=== PATIENT | female | born 1955 | race Caucasian/White ===

== ENCOUNTER 2018-02-14 07:48 | Day surgery (SDC) | payer OTHER ==
[~2018-02-14] VITALS: Ht 157.5 cm; Wt 127.7 kg
[~2018-02-14 07:48] MED LIST: ACET-66 PO; ALPR0.5T PO; ALPR0.5T8 PO; ASPI-555 PO; ENAL10TA PO; FLUT16H NASAL; HYDR12.530 PO; METO5TAB2 PO; MONT10TA24 PO; PANT40TA25 PO; SODIUM CHLORIDE 0.9% 1000ML 1,000 ML IV ONE
[2018-02-14 07:55] VITALS: BP 127/58
[2018-02-14] MEDS ORDERED: IBUP-2353 PO (08:18)
[2018-02-14] MEDS ORDERED: ATOR10 PO (08:19)
[2018-02-14] MEDS ORDERED: PROPOFOL 10 MG/ML 20ML VIAL IV ONE ×2 (09:23→09:41)
[2018-02-14 09:58] VITALS: BP 110/59
[2018-02-14 10:03] VITALS: BP 111/58
[2018-02-14 10:08] VITALS: BP 114/75
== END 2018-02-14 10:30 | disposition home or self-care (01) ==
LOC: DAH 07:48 → ENDO 07:48
PROVIDERS: ATTEND Internal Medicine
DX: K63.5 Polyp of colon (principal); K64.8 Other hemorrhoids; K57.30 Diverticulosis of large intestine without perforation or abscess without bleeding; K31.7 Polyp of stomach and duodenum; K31.89 Other diseases of stomach and duodenum; K22.8 Other specified diseases of esophagus; K44.9 Diaphragmatic hernia without obstruction or gangrene; I10 Essential (primary) hypertension; E78.5 Hyperlipidemia, unspecified; J44.9 Chronic obstructive pulmonary disease, unspecified; F41.9 Anxiety disorder, unspecified; F32.9 Major depressive disorder, single episode, unspecified; M19.90 Unspecified osteoarthritis, unspecified site; Z68.43 Body mass index [BMI] 50.0-59.9, adult; Z90.49 Acquired absence of other specified parts of digestive tract; Z98.890 Other specified postprocedural states; Z98.49 Cataract extraction status, unspecified eye; Z79.899 Other long term (current) drug therapy; Z88.8 Allergy status to other drugs, medicaments and biological substances
CPT/HCPCS: 43239; 43251; 45380; A4606; J2704 ×2; J7030

== ENCOUNTER 2021-10-20 05:30 | Day surgery (SDC) | payer OTHER ==
[2021-10-19 12:14] LABS: BASOPHILS % (AUTO) 0.6 % (0.0-5.0); EOSINOPHILS % (AUTO) 2.6 % (0.0-8.0); HEMATOCRIT 37.8 % (36-48); LYMPHOCYTES % (AUTO) 21.8 % (21.0-51.0); MEAN CORPUSCULAR HEMOGLOBIN 26.3 pg (27.0-33.0); MEAN CORPUSCULAR HGB CONC 30.7 g/dL (32.0-36.0); MEAN CORPUSCULAR VOLUME 85.7 fL (79-99); MONOCYTES % (AUTO) 5.7 % (3.0-13.0); PLATELET COUNT (AUTO) 297 K/uL (130-400); RED BLOOD CELL COUNT(AUTO) 4.41 MIL/uL (4.00-5.50); RED CELL DISTRIBUTION WIDTH 17.2 % (11.0-15.5); WHITE BLOOD COUNT (AUTO) 9.9 K/uL (4.8-10.8)
[2021-10-19 12:25] LABS: APPEARANCE,URINE Clear (CLEAR); BILIRUBIN,URINE Negative (NEGATIVE); COLOR,URINE Yellow (YELLOW); GLUCOSE, URINE (UA) Negative (NEGATIVE); KETONES,URINE Negative (NEGATIVE); LEUKOCYTE ESTERASE ,URINE Trace (NEGATIVE); NITRATE,URINE Negative (NEGATIVE); OCCULT BLOOD,URINE Negative (NEGATIVE); PH,URINE 5.5 (5.0-8.0); PROTEIN,URINE Negative (NEGATIVE); UROBILINOGEN,URINE 0.2 mg/dL (0.2-1.0)
[2021-10-19 12:36] LABS: BACTERIA,URINE Rare /HPF (None Seen); RBC,URINE 0-1 /HPF (0-1); SQUAMOUS EPITHELIAL CELL,UR Rare /HPF (0-2); WBC,URINE 0-1 /HPF (0-1)
[2021-10-19 13:08] VITALS: BP 139/57
[2021-10-20] VITALS (15 sets, daily range): BP systolic 126–159; BP diastolic 53–75
[~2021-10-20] VITALS: Ht 157.5 cm; Wt 124.1 kg
[~2021-10-20 05:30] MED LIST changes: -ALPR0.5T8 PO; -ASPI-555 PO; +ASPI-556 PO; +ATOR20TA65 PO; +BUDE10.2 IH; -ENAL10TA PO; +ENAL10TA18 PO; -FLUT16H NASAL; +IBUP-1673 PO; +LACT1CAP81 PO; -MONT10TA24 PO; -PANT40TA25 PO; +PANT40TA54 PO; -SODIUM CHLORIDE 0.9% 1000ML 1,000 ML IV ONE
[2021-10-20] MEDS ORDERED: LACTATED RINGERS 1000ML 1,000 ML IV SCH (06:00)
[2021-10-20] MEDS ORDERED: 0.9%NACL 1000ML 1,000 ML IV ONE (06:28)
[2021-10-20] MEDS ORDERED: MIDAZOLAM HCL 1 MG/ML 2ML VIAL ONE (08:20)
[2021-10-20] MEDS ORDERED: ONDANSETRON 4MG INJ ONE (09:39)
[2021-10-20] MEDS ORDERED: LIDOCAINE PF 100MG/5ML (2%) SYRINGE 5ML ONE (09:39)
[2021-10-20] MEDS ORDERED: DEXAMETHASONE SOD PHOSPHATE 10MG/ML 1ML VIAL ONE (09:39)
[2021-10-20] MEDS ORDERED: SUCCINYLCHOLINE CHLORIDE 20 MG/ML 10 ML VIAL ONE (09:39)
[2021-10-20] MEDS ORDERED: ROCURONIUM 10MG/1ML SYR 10 MG/ML ML ONE (09:40)
[2021-10-20] MEDS ORDERED: GLYCOPYRROLATE 1 MG/5 ML SYRINGE ONE (09:40)
[2021-10-20] MEDS ORDERED: PROPOFOL 10 MG/ML 20ML VIAL IV ONE ×2 (09:40→09:59)
[2021-10-20] MEDS ORDERED: NEOSTIGMINE 5MG/5ML SYR IV ONE (09:40)
[2021-10-20] MEDS ORDERED: FENTANYL CITRATE PF 50 MCG/1 ML 2ML VIAL ONE (09:41)
[2021-10-20] MEDS ORDERED: SUGAMMADEX SODIUM 200 MG/2 ML VIAL IV ONE (10:25)
[2021-10-20] MEDS ORDERED: KETOROLAC 30MG VIAL (30MG/ML) ONE (11:11)
== END 2021-10-20 11:54 | disposition home or self-care (01) ==
LOC: DAH 05:30
PROVIDERS: ATTEND Obstetrics & Gynecology
DX: N95.0 Postmenopausal bleeding (principal); N95.2 Postmenopausal atrophic vaginitis; N88.2 Stricture and stenosis of cervix uteri; N84.0 Polyp of corpus uteri; E11.9 Type 2 diabetes mellitus without complications; J44.9 Chronic obstructive pulmonary disease, unspecified; F41.9 Anxiety disorder, unspecified; M06.9 Rheumatoid arthritis, unspecified; E78.5 Hyperlipidemia, unspecified; M19.90 Unspecified osteoarthritis, unspecified site; M81.0 Age-related osteoporosis without current pathological fracture; E66.01 Morbid (severe) obesity due to excess calories; Z90.49 Acquired absence of other specified parts of digestive tract; Z98.890 Other specified postprocedural states; Z98.891 History of uterine scar from previous surgery; Z68.43 Body mass index [BMI] 50.0-59.9, adult; Z79.82 Long term (current) use of aspirin; Z79.899 Other long term (current) drug therapy
CPT/HCPCS: 36415 ×2; 58120; 81001; 82948 ×2; 85025; 85730; 86850; 86900; 86901; 87635; A4215; A4221; A4222; A4223; A4315; A4351; A4663; C9803; J0330; J1100; J1885; J2001; J2250; J2405; J2704 ×2; J2710; J3010; J3490; J7030 ×2

== ENCOUNTER → 2025-01-11 | Outpatient (CLI) | payer OTHER ==
[~2025-01-11] MED LIST changes: +CETI-89 PO; +DICL1PAT7 TD; +ENAL-89 PO; -ENAL10TA18 PO; +FOLI0.8C PO; +GABA-529 PO; +LIDOP TD; +MECO10005 PO; +METF-1150 PO
--- NOTE | 2025-01-28 01:42 | HMCIMG ---
EXAM: MR Lumbar Spine Without Intravenous Contrast. CLINICAL HISTORY: Radiculopathy. TECHNIQUE: Magnetic resonance images of the lumbar spine without intravenous contrast in multiple planes. CONTRAST: None. COMPARISON: CT lumbar spine dated 07/26/2022. FINDINGS: For the purposes of this examination, spinal levels were labeled assuming five [id number], lumbar-type vertebrae, with the inferior labeled L5. No acute fracture. Normal lordotic curvature. Normal vertebral body heights. Mild spondylosis is evident by marginal osteophytes and facet arthropathy at multiple levels. Mild degenerative reduction in the disc height and disc desiccation at multiple levels. 1.6 cm vertebral body hemangioma within the T12. Normal marrow signal of the vertebrae. Conus medullaris terminates at the T12-L1 level. No abnormal epidural masses. Mild diffuse fatty infiltration in the posterior paraspinal muscles. Individual spinal levels are described as follows: T12-L1: No disc bulge or herniation. No neural foraminal, lateral recess or spinal canal stenosis. L1-L2: No disc bulge or herniation. No neural foraminal, lateral recess or spinal canal stenosis. L2-L3: 2 mm annular disc bulge, indenting the anterior thecal sac. Mild bilateral neural foraminal narrowing. No spinal canal stenosis. L3-L4: 2 mm diffuse posterior disc bulge, 5 mm to 6 mm bilateral ligamentum flavum thickening, and bilateral facet hypertrophy, indenting the anterior and posterior thecal sac with mild to moderate bilateral neuroforaminal and lateral recess narrowing, and mild spinal canal stenosis. L4-L5: 3 mm diffuse posterior disc bulge, 4 mm to 5 mm bilateral ligamentum flavum thickening, and bilateral facet hypertrophy, indenting the anterior and posterior thecal sac with mild to moderate bilateral neuroforaminal narrowing and mild spinal canal stenosis. L5-S1: 1 mm disc bulge, indenting the anterior epidural fat. Mild bilateral facet hypertrophy and up to 3 mm ligamentum flavum thickening. No neural foraminal, lateral recess or spinal canal stenosis. IMPRESSION: No acute fracture. Mild spondylosis and degenerative disc disease at multiple levels, more pronounced at L3-L4 and L4-L5. No neurological compromise. No gross changes within the limits of cross-modality comparison. /[place]
== END | disposition home or self-care (01) ==
LOC: RAH 10:22
PROVIDERS: ATTEND Anesthesiology
DX: M51.16 Intervertebral disc disorders with radiculopathy, lumbar region (principal); M47.26 Other spondylosis with radiculopathy, lumbar region; M48.061 Spinal stenosis, lumbar region without neurogenic claudication; M53.3 Sacrococcygeal disorders, not elsewhere classified; M47.818 Spondylosis without myelopathy or radiculopathy, sacral and sacrococcygeal region; M25.78 Osteophyte, vertebrae; M62.89 Other specified disorders of muscle; D18.03 Hemangioma of intra-abdominal structures
CPT/HCPCS: 72148

== ENCOUNTER → 2025-04-22 | Outpatient (CLI) | payer OTHER ==
--- NOTE | 2025-04-22 12:45 | HMCIMG ---
DOUBLE CONTRAST UPPER GI SERIES: Findings: The study was performed using provocative maneuvers After swallowing effervescent crystal and thick barium, there is no definite intrinsic or extrinsic lesion seen in the esophagus. There is grade 1 esophageal reflux reflux. There is suggestion of a small hiatal hernia seen in this one images The stomach is normal in size, shape, and configuration. The rugal folds appear to be normal. The duodenal bulb, duodenal sweep, and upper jejunum appear to be normal. A small diverticulum seen in the second portion of the duodenum. There are surgical clips in the right upper quadrant from prior cholecystectomy. Fluoroscopy time: 1.1 minutes IMPRESSION: Grade 1 esophageal reflux with small hiatal hernia Otherwise NORMAL DOUBLE CONTRAST UPPER GI SERIES.
== END | disposition home or self-care (01) ==
LOC: RAH 07:46
PROVIDERS: ATTEND Internal Medicine
DX: K21.9 Gastro-esophageal reflux disease without esophagitis (principal); K44.9 Diaphragmatic hernia without obstruction or gangrene; K57.10 Diverticulosis of small intestine without perforation or abscess without bleeding; R10.10 Upper abdominal pain, unspecified; Z90.49 Acquired absence of other specified parts of digestive tract
CPT/HCPCS: 74240; 74246